=== PATIENT | female | born 1945 | race Caucasian/White ===

== ENCOUNTER 2018-04-07 15:26 | Emergency (ER) | payer MEDICARE ==
[~2018-04-07] VITALS: Ht 152.4 cm; Wt 55.5 kg
[2018-04-07 16:05] VITALS: BP 112/57
[2018-04-07] MEDS ORDERED: MULTI VIT PO (16:14)
[2018-04-07] MEDS ORDERED: CALCIUM + D PO (16:17)
[2018-04-07] MEDS ORDERED: LISINOPRIL20 MG PO (16:19)
[2018-04-07] MEDS ORDERED: FLONASE AL50 MCG/ACT IN (16:19)
[2018-04-07] MEDS ORDERED: ATORVASTATIN CA40 MG PO (16:21)
[2018-04-07] MEDS ORDERED: PROZAC10 MG PO (16:21)
[2018-04-07] MEDS ORDERED: ADULT ASPIRIN R81 MG PO (16:22)
[2018-04-07] MEDS ORDERED: METOPROL TAR25 MG PO (16:22)
[2018-04-07] MEDS ORDERED: OMEPRAZOLE10 MG PO (16:23)
[2018-04-07] MEDS ORDERED: IMODIUM2 MG PO (16:23)
== END 2018-04-07 16:05 | disposition home or self-care (01) ==
LOC: ED 15:26
PROC: 2W3DX1Z Immobilization of Left Lower Arm using Splint (ICD-10-PCS; principal; 2018-04-07)
DX: M67.432 Ganglion, left wrist (principal); M25.532 Pain in left wrist

== ENCOUNTER 2021-04-17 11:30 | Emergency (ER) | payer MEDICARE ==
[~2021-04-17] VITALS: Ht 154.9 cm; Wt 54.1 kg
[~2021-04-17 11:30] MED LIST: ADULT ASPIRIN R81 MG PO; ANASTROZOLE1 MG PO; ATORVASTATIN CA40 MG PO; BIOTIN EXTR10000 MCG PO; CALCIUM + D PO; FLONASE AL50 MCG/ACT IN; IMODIUM2 MG PO; LISINOPRIL20 MG PO; METOPROL TAR25 MG PO; MULTI VIT PO; OMEPRAZOLE10 MG PO; PROZAC10 MG PO
[2021-04-17 12:39] LABS: HEMATOCRIT 40.5 % (37.0-47.0); HEMOGLOBIN 12.9 g/dl (12.0-16.0); IMMATURE GRANULOCYTES 0.6 % (0.0-5.0); MEAN CELL VOLUME 94.2 fL CALC (80.0-100.0); MEAN CORPUSCULAR HGB CONC 31.9 g/dL CAL (32.0-36.0); NEUT# 4.5 thou/uL (2.00-7.15); RED BLOOD COUNT 4.3 mill/uL (4.20-5.60); RED CELL DISTRI WIDTH 12.9 % (11.5-15.5)
[2021-04-17 12:50] LABS: ACT PARTIAL THROMBO TIME 23.4 SECONDS (20.0-32.5); PROTHROMBIN TIME 10.2 SECONDS (9.0-12.5)
[2021-04-17 12:53] LABS: ALBUMIN 3.9 g/dL (3.2-5.0); ALKALINE PHOSPHATASE 432 u/l (38-126); ANION GAP 11 (6-22 (CALC)); BILIRUBIN, TOTAL 3.3 mg/dL (0.0-1.4); BUN 15 mg/dL (8-23); BUN/CREATININE RATIO 21 (12-20 (CALC)); CARBON DIOXIDE 30 mmol/l (22-30); CHLORIDE 98 mmol/l (95-108); CREATININE 0.7 mg/dL (0.5-1.0); GFR > 60 ML/MIN (>=60 (CALC)); GFR FOR AFR.AMER. > 60 ML/MIN (>=60 (CALC)); LIPASE 47 u/l (23-300); MAGNESIUM 1.4 mg/dL (1.6-2.3); POTASSIUM 3.2 mmol/l (3.5-5.1); SGOT/AST 191 u/l (9-36); SODIUM 136 mmol/l (137-146); TOTAL PROTEIN 7.3 g/dL (6.3-8.2)
[2021-04-17 12:54] LABS: DIGOXIN < 0.4 ng/mL (0.8-2.0)
[2021-04-17 15:52] VITALS: BP 151/62
== END 2021-04-17 15:52 | disposition short-term general hospital (02) ==
LOC: ED 11:30
DX: K80.50 Calculus of bile duct without cholangitis or cholecystitis without obstruction (principal); R00.8 Other abnormalities of heart beat; I10 Essential (primary) hypertension; F32.A Depression, unspecified; Z20.822 Contact with and (suspected) exposure to COVID-19
CPT/HCPCS: Q9967

== ENCOUNTER 2022-09-13 07:23 | Day surgery (SDC) | payer MEDICARE ==
[~2022-09-13 07:23] MED LIST changes: +CARVEDILOL6.25 MG PO; +LISINOPRIL10 MG PO; -LISINOPRIL20 MG PO
[2022-09-13 10:27] VITALS: BP 148/76
== END 2022-09-13 10:30 | disposition home or self-care (01) ==
LOC: ENDO 07:23 → ORM 09:55 → ENDO 10:30 → ORM 15:15
PROVIDERS: ATTEND Internal Medicine Gastroenterology
PROC: 0DBP8ZX Excision of Rectum, Via Natural or Artificial Opening Endoscopic, Diagnostic (ICD-10-PCS; principal; 2022-09-13)
PROC: 0DBE8ZX Excision of Large Intestine, Via Natural or Artificial Opening Endoscopic, Diagnostic (ICD-10-PCS; 2022-09-13)
DX: K62.89 Other specified diseases of anus and rectum (principal); R15.9 Full incontinence of feces; K64.8 Other hemorrhoids

== ENCOUNTER 2024-07-29 16:35 | Emergency (ER) | payer MEDICARE ==
[~2024-07-29] VITALS: Ht 152.4 cm; Wt 51.0 kg
[2024-07-29] VITALS (8 sets, daily range): BP systolic 137–164; BP diastolic 63–85
[2024-07-29] MEDS ORDERED: LIDOcaine HCl 1% (Local Anesth.) 20 ML VIAL STI STA (16:42)
[2024-07-29] MEDS ORDERED: POVIDONE IODINE 0.5 OZ/BTL TOP ONE (16:45)
[2024-07-29] MEDS ORDERED: Diph, Acellular Pertussis, Tet 0.5 ML/VIAL (Tdap) SDV IM ONE (16:45)
[2024-07-29] MEDS ORDERED: ceFAZolin Sodium 1 GM in SODIUM CHLORIDE 0.9% 50 ML IV ONE (16:45)
[2024-07-29 17:30] LABS: BASO% 0.7 % (0-3); EOS% 1.9 % (0-8); HEMATOCRIT 37.2 % (37.0-47.0); HEMOGLOBIN 12.4 g/dl (12.0-16.0); IMMATURE GRANULOCYTES 0.1 % (0.0-5.0); LYMPH% 26.8 % (15-41); MEAN CELL VOLUME 92.8 fL CALC (80.0-100.0); MEAN CORPUSCULAR HGB 30.9 pG CALC (26.0-32.0); MEAN CORPUSCULAR HGB CONC 33.3 g/dL CAL (32.0-36.0); MONO% 8.5 % (2-13); NEUT# 4.61 thou/uL (2.00-7.15); RED BLOOD COUNT 4.01 mill/uL (4.20-5.60); RED CELL DISTRI WIDTH 12.4 % (11.5-15.5)
[2024-07-29 17:44] LABS: ALBUMIN 3.8 g/dL (3.2-5.0); ALKALINE PHOSPHATASE 245 u/l (38-126); ANION GAP 11 (6-22 (CALC)); BILIRUBIN, TOTAL 0.9 mg/dL (0.02-1.3); BUN 22 mg/dL (8-23); BUN/CREATININE RATIO 27 (12-20 (CALC)); CHLORIDE 102 mmol/l (95-108); CREATININE 0.8 mg/dL (0.5-1.0); ESTIMATED GFR 74 ML/MIN (>=90 (CALC)); POTASSIUM 4.2 mmol/l (3.5-5.1); SGOT/AST 35 u/l (9-36); SODIUM 135 mmol/l (137-146); TOTAL PROTEIN 6.7 g/dL (6.3-8.2)
[2024-07-29 17:46] LABS: CARBON DIOXIDE 26 mmol/l (22-30)
[2024-07-30] MEDS ORDERED: KEFLEX500 MG PO (14:40)
== END 2024-07-29 18:41 | disposition home or self-care (01) ==
LOC: ED 16:35
PROVIDERS: Family Medicine
PROC: 0HQ1XZZ Repair Face Skin, External Approach (ICD-10-PCS; principal; 2024-07-29)
DX: S01.81XA Laceration without foreign body of other part of head, initial encounter (principal); W18.30XA Fall on same level, unspecified, initial encounter; Y93.H2 Activity, gardening and landscaping; R94.31 Abnormal electrocardiogram [ECG] [EKG]
CPT/HCPCS: 90715; J0690